=== PATIENT | male | born 1940 | race Caucasian/White ===

== ENCOUNTER 2022-03-31 02:49 | Inpatient (IN) | payer MEDICARE, BC ==
[~2022-03-31] VITALS: Ht 182.9 cm; Wt 121.6 kg
[2022-03-31] MEDS ORDERED: ONDANSETRON HCL 4MG/2ML INJ IV STA (03:09)
[2022-03-31] MEDS ORDERED: IPRATROPIUM BROMIDE (0.02%) 0.5MG/2.5ML NEB HHN STA (03:09)
[2022-03-31] MEDS: ALBUTEROL (0.083%) 2.5MG/3ML NEB HHN SCH ×2 (03:30→03:48)
[2022-03-31 03:31] LABS: BASOPHILS % 0.1 % (0.0-2.0); HEMATOCRIT. 34.4 % (42.0-52.0); HEMOGLOBIN. 11.5 g/dL (14.0-18.0); LYMPHOCYTES % 21.1 % (20.0-50.0); MEAN CORPUSCULAR HEMOGLOBIN 27.5 pg (28.0-32.0); MEAN CORPUSCULAR VOLUME 82.5 fL (80.0-94.0); MEAN PLATELET VOLUME 8.1 fl (7.4-10.4); NEUTROPHILS % 71.8 % (40.0-76.0); PLATELET 334 x1000/uL (130-400); RED BLOOD CELL COUNT 4.17 mill/uL (4.7-6.1); RED CELL DISTRIBUTION WIDTH 14.9 % (11.6-14.6)
[2022-03-31 03:37] LABS: BG BASE EXCESS -2.4 mmol/L (-2.0-2.0); BG CARBOXYHEMOGLOBIN 1.2 % (0.5-1.5); BG DEOXYHEMOGLOBIN 0.3 % (0.0-5.0); BG FRACTION INSPIRED OXYGEN 50; BG METHEMOGLOBIN 0.3 % (0.0-1.5); BG OXYGEN SATURATION 99.7 % (92.0-98.5); BG OXYHEMOGLOBIN 98.2 % (94.0-97.0); BG PH 7.356 (7.350-7.450); BG SAMPLE SITE RIGHT RADIAL; BG TOTAL HEMOGLOBIN 11.9 g/dL (12.0-18.0); BG VENT MODE MASK - BIPAP
[2022-03-31 04:35] LABS: CHLORIDE 95 mEq/L (98-107)
[2022-03-31] MEDS ORDERED: CEFTRIAXONE 1 G PREMIX 50 ML IV ONE (04:45)
[2022-03-31] MEDS ORDERED: AZITHROMYCIN 500MG/250ML 250 ML IV ONE (04:45)
[2022-03-31] MEDS ORDERED: NITROGLYCERIN 0.4MG TABLET SL SL PRN ×2 (07:15→18:30)
[2022-03-31] MEDS ORDERED: ONDANSETRON HCL 4MG/2ML INJ IV PRN (07:15)
[2022-03-31] MEDS ORDERED: IPRATROPIUM/ALBUTEROL 0.5-3(2.5)MG/3ML NEB NEB PRN (07:15)
[2022-03-31] MEDS ORDERED: MAGNESIUM/ALUMINUM HYDROXIDE/SIMETHICONE 30ML UDC PO PRN (07:15)
[2022-03-31] MEDS ORDERED: ACETAMINOPHEN 325MG TABLET PO PRN ×2 (07:15)
[2022-03-31] MEDS ORDERED: CLONIDINE 0.1MG TABLET PO PRN (07:15)
[2022-03-31] MEDS ORDERED: AZITHROMYCIN 500 MG in DEXT 5% WATER 250 ML IV SCH (08:00)
[2022-03-31] MEDS ORDERED: AMLODIPINE 10MG TABLET PO SCH (08:00)
[2022-03-31 08:46] LABS: VITAMIN B12 SERUM 179 pg/mL (211-911)
[2022-03-31] MEDS ORDERED: ASPIRIN 325MG EC TABLET PO SCH (09:00)
[2022-03-31] MEDS ORDERED: CEFTRIAXONE 1 G PREMIX 50 ML IV SCH (09:00)
[2022-03-31] MEDS: DOCUSATE SODIUM 100MG CAPSULE PO PRN (09:56)
[2022-03-31] MEDS: PANTOPRAZOLE SODIUM 40 MG/VIAL IV SCH (09:56)
[2022-03-31] MEDS: ASPIRIN 81MG EC TABLET PO SCH (09:56)
[2022-03-31] MEDS: GUAIFENESIN/DM 600MG/30MG ER TAB 12HR PO SCH ×2 (09:56→21:33)
[2022-03-31 10:28] VITALS: BP 139/80
[2022-03-31] MEDS ORDERED: METF-874 PO (10:57)
[2022-03-31] MEDS ORDERED: DOCU240C26 PO (10:57)
[2022-03-31] MEDS ORDERED: FLUT1BLS8 IH (10:57)
[2022-03-31] MEDS ORDERED: ALBU4TAB6 MT (10:57)
[2022-03-31] MEDS ORDERED: METO-396 PO ×2 (10:57)
[2022-03-31] MEDS ORDERED: TRAZ-252 PO (10:57)
[2022-03-31] MEDS ORDERED: TIOT18CA3 INH (10:57)
[2022-03-31] MEDS ORDERED: DILT60TA3 PO (10:57)
[2022-03-31] MEDS ORDERED: MECL-217 PO (10:57)
[2022-03-31] MEDS ORDERED: APIX5TAB PO (10:57)
[2022-03-31] MEDS ORDERED: ASPI-986 MT (10:57)
[2022-03-31] MEDS ORDERED: GABA-532 PO (10:57)
[2022-03-31] MEDS ORDERED: MONT10TA21 PO (10:57)
[2022-03-31 11:49] LABS: T4 FREE 1.11 ng/dL (0.76-1.46)
[2022-03-31 12:00] VITALS: BP 140/75
[2022-03-31] MEDS ORDERED: POLYETHYLENE GLYCOL 3350 (17GM) 1 DOSE PACK PO NR (12:00)
[2022-03-31 12:33] LABS: D-DIMER 0.9 mg/L FEU (<0.50); INR 1.1
[2022-03-31] MEDS: ENOXAPARIN 120MG/0.8ML SYR SUBCUT SCH ×2 (13:11→21:33)
[2022-03-31] MEDS: METHYLPREDNISOLONE SOD SUCC 125 MG/2 ML VIAL IV SCH ×2 (13:11→21:33)
[2022-03-31] MEDS ORDERED: DEXTROSE 50% WATER 50ML SYRINGE IV PRN ×2 (14:15→16:45)
[2022-03-31 16:00] VITALS: BP 142/85
[2022-03-31] MEDS: LACTULOSE 20G/30ML UDC PO PRN (16:44)
[2022-03-31] MEDS: BLOOD SUGAR DIAGNOSTIC STRIP TEST SCH ×2 (16:44→21:00)
[2022-03-31] MEDS: INSULIN LISPRO 100 UNITS/ML SUBCUT SCH ×2 (16:44→21:00)
[2022-03-31] MEDS ORDERED: BLOOD SUGAR DIAGNOSTIC STRIP TEST SCH (17:10)
[2022-03-31] MEDS ORDERED: INSULIN LISPRO 100 UNITS/ML SUBCUT SCH ×2 (17:40)
[2022-03-31 17:52] LABS: CREATINE KINASE MB FRACTION 3.2 ng/mL (0.5-3.6)
[2022-03-31 20:00] VITALS: BP 130/77
[2022-03-31] MEDS: ATORVASTATIN CALCIUM 40MG TABLET PO SCH (21:33)
[2022-03-31] MEDS: ZOLPIDEM TARTRATE 5MG TABLET PO PRN (22:48)
[2022-04-01] VITALS: BP 130/80
[2022-04-01] MEDS ORDERED: DILTIAZEM HCL 5MG/ML 5ML VIAL IV NR (01:45)
[2022-04-01] MEDS ORDERED: DILTIAZEM HCL 30MG TABLET PO NR (01:45)
[2022-04-01] MEDS ORDERED: SODIUM CHLORIDE 0.9% 250 ML IV ONE (01:45)
[2022-04-01] MEDS ORDERED: DILTIAZEM HCL 5MG/ML 5ML VIAL IV PRN (02:15)
[2022-04-01 02:53] LABS: CREATINE KINASE MB FRACTION 2.3 ng/mL (0.5-3.6)
[2022-04-01 04:00] VITALS: BP 118/67
[2022-04-01] MEDS: NA PHOS,M-B/NA PHOS,DI-BA ENEMA 118ML PR PRN (04:49)
[2022-04-01] MEDS ORDERED: DILTIAZEM HCL 30MG TABLET PO SCH (06:00)
[2022-04-01] MEDS: METHYLPREDNISOLONE SOD SUCC 125 MG/2 ML VIAL IV SCH ×3 (06:43→22:18)
[2022-04-01] MEDS: AZITHROMYCIN 500 MG in DEXT 5% WATER 250 ML IV SCH (06:43)
[2022-04-01 06:49] LABS: HEMATOCRIT. 33.9 % (42.0-52.0); HEMOGLOBIN. 11.4 g/dL (14.0-18.0); LYMPHOCYTES % 9.2 % (20.0-50.0); MEAN CORPUSCULAR HEMOGLOBIN 27.9 pg (28.0-32.0); MEAN CORPUSCULAR VOLUME 83.2 fL (80.0-94.0); MEAN PLATELET VOLUME 8.8 fl (7.4-10.4); MONOCYTES % 6.2 % (2.0-8.0); NEUTROPHILS % 84.6 % (40.0-76.0); PLATELET 257 x1000/uL (130-400); RED BLOOD CELL COUNT 4.08 mill/uL (4.7-6.1); RED CELL DISTRIBUTION WIDTH 15.1 % (11.6-14.6)
[2022-04-01] MEDS: BLOOD SUGAR DIAGNOSTIC STRIP TEST SCH ×4 (07:00→21:00)
[2022-04-01 08:00] VITALS: BP 128/92
[2022-04-01] MEDS ORDERED: DIGOXIN 500MCG/2ML AMP IV SCH (08:00)
[2022-04-01] MEDS ORDERED: METOPROLOL TARTRATE 5MG/5ML VIAL IV PRN (08:15)
[2022-04-01] MEDS ORDERED: AMIODARONE HCL 150 MG in DEXT 5% WATER 100 ML IV SCH (08:30)
[2022-04-01] MEDS: GUAIFENESIN 200MG/10ML SUGAR FREE UDC PO PRN (08:47)
[2022-04-01] MEDS: GUAIFENESIN/DM 600MG/30MG ER TAB 12HR PO SCH ×2 (08:48→20:44)
[2022-04-01] MEDS: METOPROLOL TARTRATE 50MG TABLET PO SCH ×2 (08:49→20:44)
[2022-04-01] MEDS: ENOXAPARIN 120MG/0.8ML SYR SUBCUT SCH ×2 (08:49→20:41)
[2022-04-01] MEDS: ASPIRIN 81MG EC TABLET PO SCH (08:51)
[2022-04-01] MEDS: PANTOPRAZOLE SODIUM 40 MG/VIAL IV SCH (08:52)
[2022-04-01] MEDS: CEFTRIAXONE 1,000 MG in DEXTROSE 5% WATER 50 ML IV SCH (08:52)
[2022-04-01] MEDS: INSULIN LISPRO 100 UNITS/ML SUBCUT SCH ×4 (09:03→20:43)
[2022-04-01 11:27] LABS: CHLORIDE 99 mEq/L (98-107)
[2022-04-01 12:00] VITALS: BP 120/88
[2022-04-01 13:42] LABS: PHOSPHORUS 3.6 mg/dL (2.5-4.9)
[2022-04-01] MEDS: LACTULOSE 20G/30ML UDC PO PRN (14:05)
[2022-04-01 15:38] VITALS: BP 130/104
[2022-04-01] MEDS: AMIODARONE HCL 200 MG TABLET PO SCH (16:25)
[2022-04-01] MEDS: AMIODARONE HCL 900 MG in DEXT 5% WATER 482 ML IV SCH ×2 (16:43→16:53)
[2022-04-01] MEDS: DIGOXIN 125MCG TABLET PO SCH (17:35)
[2022-04-01 20:00] VITALS: BP 138/94
[2022-04-01] MEDS: ATORVASTATIN CALCIUM 40MG TABLET PO SCH (20:43)
[2022-04-01] MEDS: ZOLPIDEM TARTRATE 5MG TABLET PO PRN (23:31)
[2022-04-02] VITALS: BP 132/100
[2022-04-02] MEDS: NA PHOS,M-B/NA PHOS,DI-BA ENEMA 118ML PR PRN (02:16)
[2022-04-02] MEDS: IPRATROPIUM/ALBUTEROL 0.5-3(2.5)MG/3ML NEB HHN SCH ×5 (03:14→21:41)
[2022-04-02 04:00] VITALS: BP 150/104
[2022-04-02] MEDS: DOCUSATE SODIUM 100MG CAPSULE PO PRN (05:10)
[2022-04-02] MEDS: METHYLPREDNISOLONE SOD SUCC 125 MG/2 ML VIAL IV SCH (05:11)
[2022-04-02] MEDS: AZITHROMYCIN 500 MG in DEXT 5% WATER 250 ML IV SCH (05:11)
[2022-04-02] MEDS: INSULIN LISPRO 100 UNITS/ML SUBCUT SCH ×4 (06:22→21:00)
[2022-04-02] MEDS: BLOOD SUGAR DIAGNOSTIC STRIP TEST SCH ×4 (07:10→21:04)
[2022-04-02 08:00] VITALS: BP 156/96
[2022-04-02] MEDS: ENOXAPARIN 120MG/0.8ML SYR SUBCUT SCH ×2 (08:30→21:03)
[2022-04-02] MEDS: METOPROLOL TARTRATE 50MG TABLET PO SCH ×2 (08:30→21:03)
[2022-04-02] MEDS: CEFTRIAXONE 1,000 MG in DEXTROSE 5% WATER 50 ML IV SCH (08:30)
[2022-04-02] MEDS: ASPIRIN 81MG EC TABLET PO SCH (08:31)
[2022-04-02] MEDS: AMIODARONE HCL 200 MG TABLET PO SCH ×3 (08:31→17:20)
[2022-04-02] MEDS: PANTOPRAZOLE SODIUM 40 MG/VIAL IV SCH (08:31)
[2022-04-02] MEDS: GUAIFENESIN/DM 600MG/30MG ER TAB 12HR PO SCH ×2 (08:33→21:03)
[2022-04-02] MEDS: LACTULOSE 20G/30ML UDC PO PRN ×2 (08:33→19:01)
[2022-04-02 12:00] VITALS: BP 144/90
[2022-04-02 16:00] VITALS: BP 151/88
[2022-04-02] MEDS: DIGOXIN 125MCG TABLET PO SCH (17:20)
[2022-04-02 20:00] VITALS: BP 145/104
[2022-04-02] MEDS: ATORVASTATIN CALCIUM 40MG TABLET PO SCH (21:03)
[2022-04-02] MEDS: METHYLPREDNISOLONE SOD SUCC 40 MG/ML VIAL IV SCH (21:04)
[2022-04-03] VITALS: BP 143/93
[2022-04-03] MEDS: IPRATROPIUM/ALBUTEROL 0.5-3(2.5)MG/3ML NEB HHN SCH ×6 (00:56→21:45)
[2022-04-03 04:00] VITALS: BP 151/106
[2022-04-03] MEDS: AZITHROMYCIN 500 MG in DEXT 5% WATER 250 ML IV SCH (05:09)
[2022-04-03] MEDS: CEFTRIAXONE 1,000 MG in DEXTROSE 5% WATER 50 ML IV SCH (06:55)
[2022-04-03] MEDS: INSULIN LISPRO 100 UNITS/ML SUBCUT SCH ×4 (07:40→21:00)
[2022-04-03] MEDS: BLOOD SUGAR DIAGNOSTIC STRIP TEST SCH ×4 (07:59→21:16)
[2022-04-03 08:00] VITALS: BP 146/100
[2022-04-03] MEDS: GUAIFENESIN/DM 600MG/30MG ER TAB 12HR PO SCH ×2 (09:00→20:53)
[2022-04-03 09:12] LABS: HEMATOCRIT 38.7 % (42.0-52.0); MEAN CORPUSCULAR HEMOGLOBIN 27.7 pg (28.0-32.0); MEAN CORPUSCULAR VOLUME 82.7 fL (80.0-94.0); PLATELET 319 x1000/uL (130-400); RED BLOOD CELL COUNT 4.68 mill/uL (4.7-6.1); RED CELL DISTRIBUTION WIDTH 15.1 % (11.6-14.6)
[2022-04-03 09:51] LABS: CHLORIDE 93 mEq/L (98-107)
[2022-04-03] MEDS: METHYLPREDNISOLONE SOD SUCC 40 MG/ML VIAL IV SCH ×2 (09:53→20:50)
[2022-04-03] MEDS: GUAIFENESIN 200MG/10ML SUGAR FREE UDC PO PRN (09:53)
[2022-04-03] MEDS: ASPIRIN 81MG EC TABLET PO SCH (09:53)
[2022-04-03] MEDS: METOPROLOL TARTRATE 25MG TABLET PO SCH ×2 (09:55→17:07)
[2022-04-03] MEDS: ENOXAPARIN 120MG/0.8ML SYR SUBCUT SCH ×2 (09:56→20:52)
[2022-04-03] MEDS: FAMOTIDINE 20MG TABLET PO SCH ×2 (10:02→20:53)
[2022-04-03 12:00] VITALS: BP 132/82
[2022-04-03 16:00] VITALS: BP 149/95
[2022-04-03] MEDS: DIGOXIN 125MCG TABLET PO SCH (17:52)
[2022-04-03 20:00] VITALS: BP 120/81
[2022-04-03] MEDS: ATORVASTATIN CALCIUM 40MG TABLET PO SCH (20:53)
[2022-04-04] VITALS: BP 142/82
[2022-04-04] MEDS: IPRATROPIUM/ALBUTEROL 0.5-3(2.5)MG/3ML NEB HHN SCH ×5 (00:40→21:30)
[2022-04-04] MEDS: ZOLPIDEM TARTRATE 5MG TABLET PO PRN ×2 (01:22→18:13)
[2022-04-04] MEDS: METOPROLOL TARTRATE 25MG TABLET PO SCH ×2 (01:23→07:11)
[2022-04-04 04:00] VITALS: BP 131/97
[2022-04-04] MEDS: CEFTRIAXONE 1,000 MG in DEXTROSE 5% WATER 50 ML IV SCH (06:00)
[2022-04-04] MEDS ORDERED: AZITHROMYCIN 500 MG TABLET PO SCH (06:00)
[2022-04-04] MEDS: BLOOD SUGAR DIAGNOSTIC STRIP TEST SCH ×4 (06:11→21:00)
[2022-04-04] MEDS: INSULIN LISPRO 100 UNITS/ML SUBCUT SCH ×4 (06:11→21:00)
[2022-04-04 07:19] LABS: HEMOGLOBIN 12.7 g/dL (14.0-18.0); MEAN CORPUSCULAR HEMOGLOBIN 28.2 pg (28.0-32.0); MEAN CORPUSCULAR VOLUME 81.9 fL (80.0-94.0); PLATELET 282 x1000/uL (130-400); RED BLOOD CELL COUNT 4.52 mill/uL (4.7-6.1); RED CELL DISTRIBUTION WIDTH 14.6 % (11.6-14.6)
[2022-04-04 07:46] LABS: CHLORIDE 92 mEq/L (98-107)
[2022-04-04 08:00] VITALS: BP 146/95
[2022-04-04] MEDS ORDERED: PREDNISOLONE 15 MG/5 ML ORAL SYRINGE PO SCH (09:00)
[2022-04-04] MEDS ORDERED: PREDNISONE 20MG TABLET PO SCH (09:00)
[2022-04-04] MEDS: ASPIRIN 81MG EC TABLET PO SCH (09:05)
[2022-04-04] MEDS: FAMOTIDINE 20MG TABLET PO SCH ×2 (09:05→21:50)
[2022-04-04] MEDS: GUAIFENESIN/DM 600MG/30MG ER TAB 12HR PO SCH ×2 (09:05→21:50)
[2022-04-04] MEDS: ENOXAPARIN 120MG/0.8ML SYR SUBCUT SCH ×2 (09:05→21:50)
[2022-04-04] MEDS: NA PHOS,M-B/NA PHOS,DI-BA ENEMA 118ML PR PRN (09:06)
[2022-04-04] MEDS ORDERED: SODIUM CHLORIDE 0.9% 1,000 ML IV ONE (11:00)
[2022-04-04 12:17] VITALS: BP 157/86
[2022-04-04] MEDS: POLYETHYLENE GLYCOL 3350 (17GM) 1 DOSE PACK PO SCH (12:51)
[2022-04-04 16:00] VITALS: BP 157/97
[2022-04-04] MEDS: DIGOXIN 125MCG TABLET PO SCH (18:28)
[2022-04-04 20:00] VITALS: BP 146/100
[2022-04-04] MEDS: METOPROLOL TARTRATE 100MG TABLET PO SCH (21:50)
[2022-04-04] MEDS: ATORVASTATIN CALCIUM 40MG TABLET PO SCH (21:50)
[2022-04-04] MEDS ORDERED: DIPHENHYDRAMINE 50MG/ML VIAL IM PRN (23:30)
[2022-04-04] MEDS ORDERED: LORAZEPAM 2MG/ML CPJ IV NR (23:30)
[2022-04-05] VITALS: BP_SYST 129; BP_SYST 148; BP_DIAS 84; BP_DIAS 95
[2022-04-05] MEDS: IPRATROPIUM/ALBUTEROL 0.5-3(2.5)MG/3ML NEB HHN SCH ×6 (00:35→21:18)
[2022-04-05 03:39] VITALS: BP 135/85
[2022-04-05] MEDS: BLOOD SUGAR DIAGNOSTIC STRIP TEST SCH ×4 (05:49→20:44)
[2022-04-05] MEDS: INSULIN LISPRO 100 UNITS/ML SUBCUT SCH ×4 (05:50→21:00)
[2022-04-05 07:19] LABS: HEMATOCRIT 37.6 % (42.0-52.0); HEMOGLOBIN 12.6 g/dL (14.0-18.0); MEAN CORPUSCULAR HEMOGLOBIN 27.8 pg (28.0-32.0); MEAN CORPUSCULAR VOLUME 82.7 fL (80.0-94.0); PLATELET 310 x1000/uL (130-400); RED BLOOD CELL COUNT 4.55 mill/uL (4.7-6.1); RED CELL DISTRIBUTION WIDTH 14.8 % (11.6-14.6)
[2022-04-05 07:57] LABS: CHLORIDE 92 mEq/L (98-107)
[2022-04-05 08:00] VITALS: BP 143/87
[2022-04-05] MEDS ORDERED: FUROSEMIDE 40MG/4ML VIAL IVP SCH (09:00)
[2022-04-05] MEDS ORDERED: PREDNISONE 20MG TABLET PO SCH (09:00)
[2022-04-05] MEDS ORDERED: SODIUM CHLORIDE 0.9% 1,000 ML IV ONE (09:30)
[2022-04-05] MEDS: ENOXAPARIN 120MG/0.8ML SYR SUBCUT SCH ×2 (10:10→20:58)
[2022-04-05] MEDS: POLYETHYLENE GLYCOL 3350 (17GM) 1 DOSE PACK PO SCH (10:11)
[2022-04-05] MEDS: METOPROLOL TARTRATE 100MG TABLET PO SCH ×2 (10:12→20:59)
[2022-04-05] MEDS: FAMOTIDINE 20MG TABLET PO SCH ×2 (10:12→20:58)
[2022-04-05] MEDS: GUAIFENESIN/DM 600MG/30MG ER TAB 12HR PO SCH ×2 (10:12→20:59)
[2022-04-05 12:00] VITALS: BP 134/93
[2022-04-05] MEDS ORDERED: METHYLPREDNISOLONE SOD SUCC 40 MG/ML VIAL IV SCH (14:00)
[2022-04-05 16:00] VITALS: BP 143/81
[2022-04-05 16:55] LABS: CHLORIDE 91 mEq/L (98-107)
[2022-04-05] MEDS: DIGOXIN 125MCG TABLET PO SCH (17:59)
[2022-04-05] MEDS: ASPIRIN 81MG EC TABLET PO SCH (17:59)
[2022-04-05 20:00] VITALS: BP 138/84
[2022-04-05] MEDS: ATORVASTATIN CALCIUM 40MG TABLET PO SCH (20:58)
[2022-04-05] MEDS: ZOLPIDEM TARTRATE 5MG TABLET PO PRN (21:11)
[2022-04-06] VITALS: BP 153/93
[2022-04-06] MEDS: IPRATROPIUM/ALBUTEROL 0.5-3(2.5)MG/3ML NEB HHN SCH ×6 (00:33→21:00)
[2022-04-06 04:00] VITALS: BP 107/74
[2022-04-06] MEDS ORDERED: METHYLPREDNISOLONE SOD SUCC 40 MG/ML VIAL IV SCH (06:00)
[2022-04-06] MEDS: BLOOD SUGAR DIAGNOSTIC STRIP TEST SCH ×4 (06:06→21:04)
[2022-04-06] MEDS: INSULIN LISPRO 100 UNITS/ML SUBCUT SCH ×4 (06:06→21:03)
[2022-04-06 07:23] LABS: HEMATOCRIT 34.9 % (42.0-52.0); HEMOGLOBIN 11.9 g/dL (14.0-18.0); MEAN CORPUSCULAR VOLUME 82.3 fL (80.0-94.0); PLATELET 193 x1000/uL (130-400); RED BLOOD CELL COUNT 4.24 mill/uL (4.7-6.1); RED CELL DISTRIBUTION WIDTH 14.7 % (11.6-14.6)
[2022-04-06] MEDS ORDERED: PREDNISONE 20MG TABLET PO SCH (07:40)
[2022-04-06] MEDS ORDERED: DIGOXIN 500MCG/2ML AMP IV NR (07:45)
[2022-04-06] MEDS ORDERED: AMIODARONE HCL 50MG/ML 3ML VIAL IV ONE (07:45)
[2022-04-06 08:00] VITALS: BP 134/89
[2022-04-06] MEDS: ASPIRIN 81MG EC TABLET PO SCH (08:08)
[2022-04-06] MEDS: FAMOTIDINE 20MG TABLET PO SCH ×2 (08:09→21:04)
[2022-04-06] MEDS: GUAIFENESIN/DM 600MG/30MG ER TAB 12HR PO SCH ×3 (08:09→21:00)
[2022-04-06] MEDS: ENOXAPARIN 120MG/0.8ML SYR SUBCUT SCH ×2 (08:09→21:04)
[2022-04-06] MEDS: METOPROLOL TARTRATE 100MG TABLET PO SCH ×2 (08:09→21:04)
[2022-04-06] MEDS ORDERED: AMIODARONE HCL 900 MG in DEXT 5% WATER 500 ML IV SCH (09:00)
[2022-04-06] MEDS ORDERED: AMIODARONE IN DEXTROSE,ISO-OSM 100 ML IV SCH (09:00)
[2022-04-06] MEDS ORDERED: AMIODARONE HCL 150 MG in DEXT 5% WATER 100 ML IV SCH (09:00)
[2022-04-06 10:16] LABS: CHLORIDE 94 mEq/L (98-107)
[2022-04-06 12:00] VITALS: BP 131/71
[2022-04-06 16:00] VITALS: BP 138/76
[2022-04-06] MEDS: AMIODARONE HCL 200 MG TABLET PO SCH ×2 (16:15→16:58)
[2022-04-06] MEDS: DIGOXIN 125MCG TABLET PO SCH (17:00)
[2022-04-06 20:00] VITALS: BP 151/76
[2022-04-06] MEDS: ATORVASTATIN CALCIUM 40MG TABLET PO SCH (21:03)
[2022-04-06] MEDS ORDERED: LORAZEPAM 2MG/ML CPJ IV NR (23:15)
[2022-04-07] VITALS: BP 152/79
[2022-04-07] MEDS ORDERED: DOCUSATE SODIUM 250MG CAPSULE PO PRN (03:45)
[2022-04-07] MEDS ORDERED: LACTULOSE 20G/30ML UDC PO PRN (03:45)
[2022-04-07] MEDS: NA PHOS,M-B/NA PHOS,DI-BA ENEMA 118ML PR PRN (03:55)
[2022-04-07 04:00] VITALS: BP 156/80
[2022-04-07] MEDS ORDERED: LORAZEPAM 2MG/ML CPJ IV NR (04:00)
[2022-04-07] MEDS: IPRATROPIUM BROMIDE (0.02%) 0.5MG/2.5ML NEB HHN PRN ×2 (06:51→06:52)
[2022-04-07] MEDS: BLOOD SUGAR DIAGNOSTIC STRIP TEST SCH (07:01)
[2022-04-07] MEDS: INSULIN LISPRO 100 UNITS/ML SUBCUT SCH (07:01)
[2022-04-07 08:00] VITALS: BP 146/77
[2022-04-07 08:36] LABS: HEMOGLOBIN 12.4 g/dL (14.0-18.0); MEAN CORPUSCULAR HEMOGLOBIN 28.1 pg (28.0-32.0); MEAN CORPUSCULAR VOLUME 81.7 fL (80.0-94.0); PLATELET 202 x1000/uL (130-400); RED BLOOD CELL COUNT 4.41 mill/uL (4.7-6.1); RED CELL DISTRIBUTION WIDTH 14.7 % (11.6-14.6)
[2022-04-07] MEDS ORDERED: FLUOXETINE HCL 10 MG CAPSULE PO SCH (09:00)
[2022-04-07] MEDS: IPRATROPIUM/ALBUTEROL 0.5-3(2.5)MG/3ML NEB HHN SCH (09:26)
[2022-04-07 09:30] VITALS: BP 146/7
[2022-04-07] MEDS ORDERED: METO100T16 PO (09:38)
[2022-04-07] MEDS ORDERED: LIP40 PO (09:38)
[2022-04-07] MEDS ORDERED: AMI2 PO (09:38)
[2022-04-07] MEDS ORDERED: FLUOX10 PO (09:38)
[2022-04-07] MEDS ORDERED: FAMO20TA8 PO (09:38)
[2022-04-07] MEDS ORDERED: AMI2 MT (09:38)
[2022-04-07] MEDS ORDERED: DIGO-26 PO (09:38)
[2022-04-07] MEDS ORDERED: ASPI-1406 PO (09:38)
[2022-04-07] MEDS ORDERED: LOSA25TA3 MT (09:39)
[2022-04-07] MEDS ORDERED: FURO-152 MT (09:39)
[2022-04-07 10:35] LABS: CHLORIDE 91 mEq/L (98-107)
== END 2022-04-07 11:40 | disposition home health service (06) | DRG 193 ==
LOC: ER 02:53 → 8WST 05:42 → EDBEDREQ 05:47 → EDBEDREQTM 05:47 → SUPCPDRO 07:14 → EDBEDREQSVC 08:55
PROVIDERS: ADMIT Internal Medicine; ATTEND Internal Medicine
PROC: 5A09357 Assistance with Respiratory Ventilation, Less than 24 Consecutive Hours, Continuous Positive Airway Pressure (ICD-10-PCS; principal; 2022-03-31)
DX: J18.9 Pneumonia, unspecified organism (principal); G92.8 Other toxic encephalopathy; J96.01 Acute respiratory failure with hypoxia; I21.A1 Myocardial infarction type 2; I26.94 Multiple subsegmental thrombotic pulmonary emboli without acute cor pulmonale; I50.43 Acute on chronic combined systolic (congestive) and diastolic (congestive) heart failure; J44.1 Chronic obstructive pulmonary disease with (acute) exacerbation; E44.0 Moderate protein-calorie malnutrition; E87.1 Hypo-osmolality and hyponatremia; E87.20 Acidosis, unspecified; I42.9 Cardiomyopathy, unspecified; J44.0 Chronic obstructive pulmonary disease with (acute) lower respiratory infection; I48.0 Paroxysmal atrial fibrillation; K59.00 Constipation, unspecified; E11.9 Type 2 diabetes mellitus without complications; T38.0X5A Adverse effect of glucocorticoids and synthetic analogues, initial encounter; I11.0 Hypertensive heart disease with heart failure; E66.9 Obesity, unspecified; R41.0 Disorientation, unspecified; S50.821A Blister (nonthermal) of right forearm, initial encounter; F15.959 Other stimulant use, unspecified with stimulant-induced psychotic disorder, unspecified; Z20.822 Contact with and (suspected) exposure to COVID-19; F41.9 Anxiety disorder, unspecified; I27.20 Pulmonary hypertension, unspecified; I34.0 Nonrheumatic mitral (valve) insufficiency; I44.0 Atrioventricular block, first degree; Z78.1 Physical restraint status; Z88.2 Allergy status to sulfonamides; Z68.36 Body mass index [BMI] 36.0-36.9, adult; Z87.891 Personal history of nicotine dependence; X58.XXXA Exposure to other specified factors, initial encounter; Y93.89 Activity, other specified; Y92.89 Other specified places as the place of occurrence of the external cause; Y99.8 Other external cause status
CPT/HCPCS: 36415; 36600; 70551; 71045; 71275; 76705; 80048; 80053; 80061; 80162; 82375; 82550; 82553; 82607; 82746; 82805; 82962; 83036; 83540; 83550; 83605; 83615; 83735; 83880; 84100; 84145; 84439; 84443; 84484; 85025; 85027; 85379; 87426; 93005; 93306; 93970; 94640; 94660; 97162; 97166; 99291; C9113; C9803; J0282; J0456; J0696; J1160; J1200; J1650; J1815; J1940; J2060; J2405; J2920; J2930; J3490; J7060; J7512

== ENCOUNTER 2022-04-08 15:13 | Inpatient (IN) | payer MEDICARE, BC ==
[~2022-04-08] VITALS: Ht 177.8 cm; Wt 134.3 kg
[~2022-04-08 15:13] MED LIST: ALBU4TAB6 MT; AMI2 MT; AMI2 PO; APIX5TAB PO; ASPI-1406 PO; DIGO-26 PO; DOCU240C26 PO; FAMO20TA8 PO; FLUOX10 PO; FLUT1BLS8 IH; FURO-152 MT; LIP40 PO; LOSA25TA3 MT; METF-874 PO; METO100T16 PO; MONT10TA21 PO; TIOT18CA3 INH
[2022-04-08] MEDS ORDERED: SODIUM CHLORIDE 0.9% 1,000 ML IV ONE ×2 (15:30→15:45)
[2022-04-08] MEDS ORDERED: ACETAMINOPHEN 325MG TABLET PO ONE (15:45)
[2022-04-08] MEDS ORDERED: PIPERACILLIN/TAZ 3.375G PREMIX 50 ML IV ONE (15:45)
[2022-04-08] MEDS ORDERED: TETANUS, DIPHTHERIA, PERTUSSIS VAC/PF 0.5ML (>10YR OLD) IM ONE (15:45)
[2022-04-08] MEDS ORDERED: VANCOMYCIN 1G PREMIX 200 ML IV ONE (15:45)
[2022-04-08] MEDS ORDERED: LIDOCAINE HCL/PF 1% 10 MG/ML 5ML VIAL INFIL ONE (15:45)
[2022-04-08] MEDS ORDERED: BACITRACIN ZINC OINT UDPKT TOP ONE (15:45)
[2022-04-08 16:00] LABS: HEMATOCRIT. 23.8 % (42.0-52.0); HEMOGLOBIN. 7.8 g/dL (14.0-18.0); MEAN CORPUSCULAR HEMOGLOBIN 27.7 pg (28.0-32.0); MEAN CORPUSCULAR VOLUME 84.8 fL (80.0-94.0); MEAN PLATELET VOLUME 9.7 fl (7.4-10.4); PLATELET 206 x1000/uL (130-400); RED BLOOD CELL COUNT 2.81 mill/uL (4.7-6.1); RED CELL DISTRIBUTION WIDTH 14.8 % (11.6-14.6)
[2022-04-08 16:10] LABS: CHLORIDE 89 mEq/L (98-107); INR 1.4; PROTHROMBIN TIME 14.6 sec (9.6-11.0)
[2022-04-08 16:23] LABS: PLATELET ESTIMATE NORMAL
[2022-04-08 16:29] LABS: ETHANOL BLOOD < 10 mg/dL
[2022-04-08] MEDS ORDERED: NOREPINEPHRINE 8MG/250ML PMX 250 ML IV ONE (16:53)
[2022-04-08 17:54] LABS: BG BASE EXCESS -6.6 mmol/L (-2.0-2.0); BG CARBOXYHEMOGLOBIN 0.3 % (0.5-1.5); BG DEOXYHEMOGLOBIN 0.5 % (0.0-5.0); BG FRACTION INSPIRED OXYGEN 100; BG HCO3 ACT 17.5 mmol/L (22.0-26.0); BG METHEMOGLOBIN 0.5 % (0.0-1.5); BG OXYGEN SATURATION 99.5 % (92.0-98.5); BG OXYHEMOGLOBIN 98.7 % (94.0-97.0); BG PCO2 29.5 mmHg (35.0-45.0); BG PO2 501.6 mmHg (75.0-100.0); BG SAMPLE SITE LEFT RADIAL; BG TOTAL HEMOGLOBIN 8.6 g/dL (12.0-18.0); BG VENT MODE MASK - NRB
[2022-04-08] MEDS ORDERED: PIPERACILLIN/TAZ 3.375G PREMIX 50 ML IV SCH (21:15)
[2022-04-08] MEDS ORDERED: MAGNESIUM/ALUMINUM HYDROXIDE/SIMETHICONE 30ML UDC PO PRN (21:15)
[2022-04-08] MEDS ORDERED: DEXTROSE 50% WATER 50ML SYRINGE IV PRN (21:15)
[2022-04-08] MEDS ORDERED: NITROGLYCERIN 0.4MG TABLET SL SL PRN (21:15)
[2022-04-08] MEDS ORDERED: ZOLPIDEM TARTRATE 5MG TABLET PO PRN (21:15)
[2022-04-08] MEDS ORDERED: ONDANSETRON HCL 4MG/2ML INJ IV PRN (21:15)
[2022-04-08] MEDS ORDERED: IPRATROPIUM/ALBUTEROL 0.5-3(2.5)MG/3ML NEB NEB PRN (21:15)
[2022-04-08] MEDS ORDERED: CLONIDINE 0.1MG TABLET PO PRN (21:15)
[2022-04-08] MEDS ORDERED: DOCUSATE SODIUM 100MG CAPSULE PO PRN (21:15)
[2022-04-08] MEDS ORDERED: ACETAMINOPHEN 325MG TABLET PO PRN ×2 (21:15)
[2022-04-08] MEDS ORDERED: NOREPINEPHRINE 8 MG in DEXT 5% WATER 242 ML IV PRN (21:27)
[2022-04-08] MEDS ORDERED: NOREPINEPHRINE 8MG/250ML PMX 250ML IV PRN (21:30)
[2022-04-08 21:42] LABS: TOTAL IRON BINDING CAPACITY 236 ug/dL (250-450)
[2022-04-08] MEDS: DEXT 5%/LACTATED RINGERS 1,000 ML IV SCH (22:05)
[2022-04-08 22:17] LABS: VITAMIN B12 SERUM 404 pg/mL (211-911)
[2022-04-08] MEDS: AMIODARONE HCL 200 MG TABLET PO SCH (22:25)
[2022-04-08] MEDS ORDERED: VANCOMYCIN 500MG PREMIX 100 ML IV NR (22:30)
[2022-04-08] MEDS: PIPERACILLIN/TAZOBACTAM 3.375G in DEXT 5% WATER 50ML IV SCH (23:00)
[2022-04-09] VITALS (54 sets, daily range): BP systolic 59–192; BP diastolic 16–100
[2022-04-09 00:42] LABS: CREATINE KINASE MB FRACTION 6.2 ng/mL (0.5-3.6)
[2022-04-09 03:19] LABS: HEMATOCRIT 19.4 % (42.0-52.0); HEMOGLOBIN 6.2 g/dL (14.0-18.0)
[2022-04-09 05:05] LABS: BG BASE EXCESS -10.9 mmol/L (-2.0-2.0); BG CARBOXYHEMOGLOBIN 0.4 % (0.5-1.5); BG DEOXYHEMOGLOBIN 1.4 % (0.0-5.0); BG FRACTION INSPIRED OXYGEN 40; BG HCO3 ACT 13.2 mmol/L (22.0-26.0); BG METHEMOGLOBIN 0.4 % (0.0-1.5); BG OXYGEN SATURATION 98.6 % (92.0-98.5); BG OXYHEMOGLOBIN 97.8 % (94.0-97.0); BG PCO2 22.8 mmHg (35.0-45.0); BG PO2 150.5 mmHg (75.0-100.0); BG SAMPLE SITE LEFT RADIAL; BG TOTAL HEMOGLOBIN 6.5 g/dL (12.0-18.0); BG VENT MODE NASAL CANNULA
[2022-04-09] MEDS: AMIODARONE HCL 200 MG TABLET PO SCH ×3 (06:00→22:00)
[2022-04-09 06:06] LABS: CHLORIDE 91 mEq/L (98-107)
[2022-04-09 06:38] LABS: CREATINE KINASE 226 IU/L (39-308); CREATINE KINASE MB FRACTION 5.1 ng/mL (0.5-3.6); PHOSPHORUS 6.4 mg/dL (2.5-4.9)
[2022-04-09] MEDS: PIPERACILLIN/TAZOBACTAM 3.375G in DEXT 5% WATER 50ML IV SCH ×3 (06:45→22:09)
[2022-04-09] MEDS: BLOOD SUGAR DIAGNOSTIC STRIP TEST SCH ×4 (07:50→21:00)
[2022-04-09] MEDS: INSULIN LISPRO 100 UNITS/ML SUBCUT SCH ×4 (08:20→21:00)
[2022-04-09] MEDS ORDERED: PROPOFOL 10MG/ML 100ML 100 ML IV PRN (09:15)
[2022-04-09 09:40] LABS: BG BASE EXCESS -10.1 mmol/L (-2.0-2.0); BG CARBOXYHEMOGLOBIN 0.3 % (0.5-1.5); BG DEOXYHEMOGLOBIN 0.8 % (0.0-5.0); BG HCO3 ACT 15.9 mmol/L (22.0-26.0); BG METHEMOGLOBIN 0.2 % (0.0-1.5); BG OXYGEN SATURATION 99.2 % (92.0-98.5); BG OXYHEMOGLOBIN 98.7 % (94.0-97.0); BG PCO2 35.2 mmHg (35.0-45.0); BG PH 7.273 (7.350-7.450); BG PO2 264.4 mmHg (75.0-100.0); BG SAMPLE SITE RIGHT RADIAL; BG TOTAL HEMOGLOBIN 8.4 g/dL (12.0-18.0); BG VENT MODE VENT - AC
[2022-04-09] MEDS: PANTOPRAZOLE SODIUM 40 MG/VIAL IV SCH (09:45)
[2022-04-09 09:53] LABS: HEMATOCRIT. 22.2 % (42.0-52.0); HEMOGLOBIN. 7.3 g/dL (14.0-18.0); MEAN CORPUSCULAR HEMOGLOBIN 28.2 pg (28.0-32.0); MEAN CORPUSCULAR VOLUME 86.1 fL (80.0-94.0); MEAN PLATELET VOLUME 9.7 fl (7.4-10.4); PLATELET 166 x1000/uL (130-400); RED BLOOD CELL COUNT 2.58 mill/uL (4.7-6.1); RED CELL DISTRIBUTION WIDTH 15.4 % (11.6-14.6)
[2022-04-09] MEDS ORDERED: SODIUM BICARBONATE 8.4% 1 MEQ/ML 50ML SYR IV NR ×2 (10:00→12:45)
[2022-04-09 10:12] LABS: INR 1.9; PROTHROMBIN TIME 19.3 sec (9.6-11.0)
[2022-04-09] MEDS: DEXT 5%/LACTATED RINGERS 1,000 ML IV SCH (10:35)
[2022-04-09] MEDS ORDERED: VANCOMYCIN 1G PREMIX 200 ML IV NR (11:00)
[2022-04-09 11:05] LABS: PLATELET ESTIMATE NORMAL
[2022-04-09] MEDS: NOREPINEPHRINE 32 MG in DEXT 5% WATER 218 ML IV PRN ×3 (11:10→22:58)
[2022-04-09 12:29] LABS: BG BASE EXCESS -12.9 mmol/L (-2.0-2.0); BG CARBOXYHEMOGLOBIN 0.3 % (0.5-1.5); BG DEOXYHEMOGLOBIN 0.7 % (0.0-5.0); BG HCO3 ACT 15.5 mmol/L (22.0-26.0); BG METHEMOGLOBIN 0.1 % (0.0-1.5); BG OXYGEN SATURATION 99.3 % (92.0-98.5); BG OXYHEMOGLOBIN 98.9 % (94.0-97.0); BG PCO2 47.7 mmHg (35.0-45.0); BG PH 7.129 (7.350-7.450); BG PO2 447.6 mmHg (75.0-100.0); BG SAMPLE SITE RIGHT RADIAL; BG TOTAL HEMOGLOBIN 8.3 g/dL (12.0-18.0); BG VENT MODE VENT - AC
[2022-04-09] MEDS ORDERED: INSULIN REGULAR (HUMULIN R) 300UNITS/3ML VIAL IV NR (14:15)
[2022-04-09] MEDS: SODIUM BICARBONATE 150 MEQ in SODIUM CHLORIDE 0.45% 1,000 ML IV SCH (14:41)
[2022-04-09] MEDS ORDERED: AMIODARONE HCL 900 MG in DEXT 5% WATER 500 ML IV PRN (15:00)
[2022-04-09 16:01] LABS: HEMATOCRIT. 23.9 % (42.0-52.0); HEMOGLOBIN. 7.7 g/dL (14.0-18.0); MEAN CORPUSCULAR HEMOGLOBIN 27.9 pg (28.0-32.0); MEAN PLATELET VOLUME 9.7 fl (7.4-10.4); PLATELET 154 x1000/uL (130-400); RED BLOOD CELL COUNT 2.78 mill/uL (4.7-6.1); RED CELL DISTRIBUTION WIDTH 16.5 % (11.6-14.6)
[2022-04-09] MEDS: BUDESONIDE 0.5MG/2ML NEB HHN SCH ×2 (16:07→20:00)
[2022-04-09] MEDS: IPRATROPIUM/ALBUTEROL 0.5-3(2.5)MG/3ML NEB HHN SCH ×2 (16:08→19:51)
[2022-04-09 16:51] LABS: PLATELET ESTIMATE NORMAL
[2022-04-09 16:55] LABS: INR 2.6; PROTHROMBIN TIME 25.6 sec (9.6-11.0)
[2022-04-09 17:21] LABS: PHOSPHORUS 11.4 mg/dL (2.5-4.9)
[2022-04-09] MEDS: EPINEPHRINE 10 MG in SODIUM CHLORIDE 0.9% 240 ML IV PRN (18:25)
[2022-04-09] MEDS ORDERED: VANCOMYCIN 1G PREMIX 200 ML IV SCH (22:00)
[2022-04-10] MEDS: IPRATROPIUM/ALBUTEROL 0.5-3(2.5)MG/3ML NEB HHN SCH (01:38)
[2022-04-10] MEDS: EPINEPHRINE 10 MG in SODIUM CHLORIDE 0.9% 240 ML IV PRN ×7 (02:34→07:57)
[2022-04-10] MEDS: NOREPINEPHRINE 32 MG in DEXT 5% WATER 218 ML IV PRN ×3 (02:35→06:48)
[2022-04-10] MEDS: SODIUM BICARBONATE 150 MEQ in SODIUM CHLORIDE 0.45% 1,000 ML IV SCH (05:07)
[2022-04-10] MEDS: PIPERACILLIN/TAZOBACTAM 3.375G in DEXT 5% WATER 50ML IV SCH (05:19)
[2022-04-10] MEDS: AMIODARONE HCL 200 MG TABLET PO SCH (05:19)
[2022-04-10 07:30] VITALS: BP 70/53
[2022-04-10 07:57] VITALS: BP 70/53
[2022-04-10] MEDS: PANTOPRAZOLE SODIUM 40 MG/VIAL IV SCH (08:05)
[2022-04-10] MEDS: INSULIN LISPRO 100 UNITS/ML SUBCUT SCH (08:20)
[2022-04-10] MEDS: BLOOD SUGAR DIAGNOSTIC STRIP TEST SCH (08:26)
== END 2022-04-10 08:23 | DRG 811 ==
LOC: ER 15:13 → EDBEDREQTM 21:16 → EDBEDREQ 21:16 → MICUSO 23:39 → CVICU 23:45
PROVIDERS: ADMIT Internal Medicine; ATTEND Internal Medicine
PROC: 0HQEXZZ Repair Left Lower Arm Skin, External Approach (ICD-10-PCS; 2022-04-08)
PROC: 02HV33Z Insertion of Infusion Device into Superior Vena Cava, Percutaneous Approach (ICD-10-PCS; 2022-04-08)
PROC: B548ZZA Ultrasonography of Superior Vena Cava, Guidance (ICD-10-PCS; 2022-04-08)
PROC: 30233N1 Transfusion of Nonautologous Red Blood Cells into Peripheral Vein, Percutaneous Approach (ICD-10-PCS; principal; 2022-04-09)
PROC: 0BH17EZ Insertion of Endotracheal Airway into Trachea, Via Natural or Artificial Opening (ICD-10-PCS; 2022-04-09)
PROC: 5A1935Z Respiratory Ventilation, Less than 24 Consecutive Hours (ICD-10-PCS; 2022-04-09)
PROC: 5A12012 Performance of Cardiac Output, Single, Manual (ICD-10-PCS; 2022-04-09)
DX: D62 Acute posthemorrhagic anemia (principal); E43 Unspecified severe protein-calorie malnutrition; J96.01 Acute respiratory failure with hypoxia; N17.0 Acute kidney failure with tubular necrosis; I26.94 Multiple subsegmental thrombotic pulmonary emboli without acute cor pulmonale; I21.A1 Myocardial infarction type 2; E87.1 Hypo-osmolality and hyponatremia; E87.20 Acidosis, unspecified; I50.22 Chronic systolic (congestive) heart failure; Z68.41 Body mass index [BMI] 40.0-44.9, adult; S30.1XXA Contusion of abdominal wall, initial encounter; R57.8 Other shock; E66.9 Obesity, unspecified; J44.9 Chronic obstructive pulmonary disease, unspecified; S51.812A Laceration without foreign body of left forearm, initial encounter; R74.01 Elevation of levels of liver transaminase levels; I48.0 Paroxysmal atrial fibrillation; K44.9 Diaphragmatic hernia without obstruction or gangrene; I11.0 Hypertensive heart disease with heart failure; E11.9 Type 2 diabetes mellitus without complications; I27.20 Pulmonary hypertension, unspecified; Z66 Do not resuscitate; Z20.822 Contact with and (suspected) exposure to COVID-19; Z88.2 Allergy status to sulfonamides; Z79.01 Long term (current) use of anticoagulants; Z87.891 Personal history of nicotine dependence; X58.XXXA Exposure to other specified factors, initial encounter; Y93.89 Activity, other specified; Y92.89 Other specified places as the place of occurrence of the external cause; Y99.8 Other external cause status
CPT/HCPCS: 31500; 36415; 36600; 71045; 74176; 80048; 80053; 80202; 80307; 80320; 80329; 82375; 82550; 82553; 82607; 82746; 82805; 82962; 83540; 83550; 83605; 83735; 83880; 84100; 84443; 84478; 84484; 85014; 85018; 85025; 85384; 86850; 86900; 86920; 87070; 87426; 90715; 92950; 93005; 94003; 94640; 99291; C9113; C9803; J1815; J2543; J2704; J3370; J3490; J7030; J7050; J7060; J7626; P9016; A4315; G0480